=== PATIENT | female | born 1995 | race African-American/Black ===

== ENCOUNTER 2019-12-10 15:06 | Emergency (ER) | payer MEDICAID ==
[~2019-12-10] VITALS: Ht 152.4 cm; Wt 62.0 kg
[2019-12-10 16:34] LABS: EOSINOPHILS % 0.7 % (0.0-5.0); HEMATOCRIT. 36.9 % (36.0-48.0); HEMOGLOBIN. 12.5 g/dL (12.0-16.0); LYMPHOCYTES % 26.6 % (20.0-50.0); MEAN CORPUSCULAR HEMOGLOBIN 26.2 pg (28.0-32.0); MEAN CORPUSCULAR VOLUME 77.3 fL (81.0-99.0); MEAN PLATELET VOLUME 9.9 fl (7.4-10.4); NEUTROPHILS % 66.7 % (40.0-76.0); PLATELET 204 x1000/uL (130-400); RED BLOOD CELL COUNT 4.78 mill/uL (4.2-5.4); RED CELL DISTRIBUTION WIDTH 14.4 % (11.6-14.6)
[2019-12-10 16:37] LABS: CHLORIDE 108 mEq/L (98-107)
[2019-12-10 17:49] VITALS: BP 140/90
== END 2019-12-10 18:23 | disposition home or self-care (01) ==
LOC: ER 15:06
DX: R07.89 Other chest pain (principal); J45.909 Unspecified asthma, uncomplicated; Z98.890 Other specified postprocedural states
CPT/HCPCS: 36415; 71045; 80053; 84484; 85025; 85379; 93005; 99285

== ENCOUNTER 2020-07-13 03:56 | Emergency (ER) | payer MEDICAID, OTHER ==
[~2020-07-13] VITALS: Ht 152.4 cm; Wt 58.0 kg
[2020-07-13] MEDS ORDERED: ONDANSETRON HCL 4MG/2ML INJ IV STA (04:21)
[2020-07-13] MEDS ORDERED: SODIUM CHLORIDE 0.9% 1,000 ML IV ONE (04:30)
[2020-07-13 05:00] VITALS: BP 123/77
[2020-07-13 06:33] LABS: CHLORIDE 109 mEq/L (98-107)
[2020-07-13 06:37] LABS: ETHANOL BLOOD < 10 mg/dL
[2020-07-13 06:45] LABS: HCG SCREEN NEGATIVE
[2020-07-13] MEDS ORDERED: KETOROLAC 60MG/2ML VIAL IM ONE (06:45)
[2020-07-13 06:46] LABS: BASOPHILS % 0.7 % (0.0-2.0); EOSINOPHILS % 0.3 % (0.0-5.0); HEMOGLOBIN. 11.9 g/dL (12.0-16.0); LYMPHOCYTES % 15.9 % (20.0-50.0); MEAN CORPUSCULAR HEMOGLOBIN 24.9 pg (28.0-32.0); MEAN CORPUSCULAR VOLUME 75.2 fL (81.0-99.0); MONOCYTES % 3.5 % (2.0-8.0); NEUTROPHILS % 79.6 % (40.0-76.0); PLATELET 197 x1000/uL (130-400); RED BLOOD CELL COUNT 4.78 mill/uL (4.2-5.4); RED CELL DISTRIBUTION WIDTH 14.4 % (11.6-14.6)
[2020-07-13 06:56] LABS: INR 1.2; PROTHROMBIN TIME 12.1 sec (9.6-11.0)
== END 2020-07-13 08:11 | disposition home or self-care (01) ==
LOC: ER 03:56
DX: F43.0 Acute stress reaction (principal); K08.89 Other specified disorders of teeth and supporting structures; J45.909 Unspecified asthma, uncomplicated
CPT/HCPCS: 36415; 71045; 80053; 80320; 83690; 83880; 84484; 84703; 85025; 85610; 99284; J7030; G0480